=== PATIENT | female | born 2000 | race Caucasian/White ===

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

== ENCOUNTER 2018-12-29 10:15 | Outpatient (CLI) | payer OTHER ==
[2016-02-18 20:35] VITALS: BP 130/90
--- NOTE | 2018-12-29 11:05 | Diagnostic Imaging Report ---
SHELDON RAM [facility] [address] [facility] [address] [place] [address]. [id number] Report Submission Date: Dec 29, 2018 11:01:35 AM CDT Patient Study Name: MARIANO MARINA Date: Dec 29, 2018 10:30:07 AM CDT Modality Type: DX Gender: F Description: FOOT 3 VIEWS OR MORE : 89 Institution: [facility] Physician: SHELDON RAM EXAMINATION: FOOT 3 VIEWS OR MORE HISTORY: LEFT FOOT PAIN X 2 MONTHS. PATIENT DENIES CHANCE OF AND WAS SHIELDED FOR EXAM. WEIGHT BEARING PER DR RAM REQUEST. (Hx) COMPARISON: None FINDINGS: There is pes planus. No acute fracture or dislocation is identified. The joint spaces are preserved. Bone density is normal. No soft tissue swelling is seen. IMPRESSION: Pes planus without acute fracture or dislocation identified. Electronically signed on Dec 29, 2018 11:01:35 AM CDT by: Poncho PERRY
--- NOTE | 2018-12-29 11:05 | Diagnostic Imaging Report ---
SHELDON RAM [facility] [address] [facility] [address] [place] [address]. [id number] Report Submission Date: Dec 29, 2018 11:01:40 AM CDT Patient Study Name: MARIANO MARINA Date: Dec 29, 2018 10:30:07 AM CDT Modality Type: DX Gender: F Description: TOES 2 VIEWS OR MORE : [birth year] Institution: [facility] Physician: SHELDON RAM EXAMINATION: TOES 2 VIEWS OR MORE HISTORY: LEFT GREAT TOE PAIN X 2 MONTHS. PATIENT DENIES CHANCE OF AND WAS SHIELDED FOR EXAM. SPECIALTY VIEW PER DR RAM REQUEST. (Hx) COMPARISON: None FINDINGS: The osseous structures are intact and well aligned without acute fracture or dislocation. The joint spaces are preserved. Bone density is normal. No soft tissue swelling is seen. IMPRESSION: No acute fracture or dislocation identified. Electronically signed on Dec 29, 2018 11:01:40 AM CDT by: Poncho PERRY
== END 2018-12-29 10:30 ==
LOC: RAD 10:15
PROVIDERS: ATTEND Podiatrist Foot & Ankle Surgery
DX: M21.42 Flat foot [pes planus] (acquired), left foot (principal); M20.5X2 Other deformities of toe(s) (acquired), left foot; M79.672 Pain in left foot
CPT/HCPCS: 73630; 73660

== ENCOUNTER 2019-06-16 11:09 | Outpatient (CLI) | payer OTHER ==
[2016-02-18 20:35] VITALS: BP 130/90
--- NOTE | 2019-06-16 15:41 | Diagnostic Imaging Report ---
AUBRIE JO (JUMA) - OP [facility] [address] [facility] [address] [place], [place]. [address] Report Submission Date: Jun 16, 2019 11:38:33 AM CDT Patient Study Name: MARIANO MARINA Date: Jun 16, 2019 11:14:19 AM CDT Modality Type: CT\SR Gender: F Description: CT ABD & PELVIS W/O CONTRAST RENAL STONE : 89 Institution: [facility] Physician: AUBRIE JO) - OP CT abdomen and pelvis without contrast Date of study: CLINICAL HISTORY: RUQ PAIN AND HEMATURIA X 2 DAYS (Hx) / ITS.REASON RUQ WITH HEMATURIA Note time : 06/16/2019 11:25:03 AM User : Sharmila Rosado RUQ PAIN AND HEMATURIA X 2 DAYS (DICOM Hx) (DICOM Hx) TECHNIQUE: 5 mm contiguous axial images of the abdomen and pelvis non contrast. FINDINGS: The lung bases are clear. Abdomen: The liver, pancreas and spleen are normal in appearance. The gallbladder is unremarkable. The kidneys are normal in size and surface contour. There is no evidence of renal or ureteral calculi. No hydronephrosis or perinephric stranding is evident. The aorta is normal in caliber. The small bowel is nondistended. There is no evidence of free air or free fluid. Shunt catheter tubing ends in the upper abdomen, unremarkable. Pelvis: The colon is normal in appearance. The distal ureters and bladder are normal in appearance. There is no evidence of ureteral or intravesicular calculi. . There is no evidence of free air or free fluid. The sigmoid colon and rectum are normal. The remaining pelvic structures are within normal limits and the bones of the pelvis are intact. IMPRESSION: Unremarkable Electronically signed on Jun 16, 2019 11:38:33 AM CDT by: Werner PERRY
== END 2019-06-16 11:12 ==
LOC: RAD 11:09
PROVIDERS: ATTEND Nurse Practitioner Family
DX: R10.11 Right upper quadrant pain (principal); R31.9 Hematuria, unspecified
CPT/HCPCS: 74150; 74176

== ENCOUNTER 2019-06-24 08:00 | Outpatient (CLI) | payer OTHER ==
[2016-02-18 20:35] VITALS: BP 130/90
--- NOTE | 2019-07-07 13:06 | Diagnostic Imaging Report ---
AUBRIE JO (JUMA) - OP [facility] [address] [facility] [address] [place], [place]. [address] Report Submission Date: Jun 16, 2019 11:38:33 AM CDT Patient Study Name: MARIANO MARINA Date: Jun 16, 2019 11:14:19 AM CDT Modality Type: CT\SR Gender: F Description: CT ABD & PELVIS W/O CONTRAST RENAL STONE : 89 Institution: [facility] Physician: AUBRIE JO) - OP CT abdomen and pelvis without contrast Date of study: CLINICAL HISTORY: RUQ PAIN AND HEMATURIA X 2 DAYS (Hx) / ITS.REASON RUQ WITH HEMATURIA Note time : 06/16/2019 11:25:03 AM User : Sharmila Rosado RUQ PAIN AND HEMATURIA X 2 DAYS (DICOM Hx) (DICOM Hx) TECHNIQUE: 5 mm contiguous axial images of the abdomen and pelvis non contrast. FINDINGS: The lung bases are clear. Abdomen: The liver, pancreas and spleen are normal in appearance. The gallbladder is unremarkable. The kidneys are normal in size and surface contour. There is no evidence of renal or ureteral calculi. No hydronephrosis or perinephric stranding is evident. The aorta is normal in caliber. The small bowel is nondistended. There is no evidence of free air or free fluid. Shunt catheter tubing ends in the upper abdomen, unremarkable. Pelvis: The colon is normal in appearance. The distal ureters and bladder are normal in appearance. There is no evidence of ureteral or intravesicular calculi. . There is no evidence of free air or free fluid. The sigmoid colon and rectum are normal. The remaining pelvic structures are within normal limits and the bones of the pelvis are intact. IMPRESSION: Unremarkable Electronically signed on Jun 16, 2019 11:38:33 AM CDT by: Werner PERRY
== END 2019-06-24 08:15 ==
LOC: RAD 08:00
PROVIDERS: ATTEND Nurse Practitioner Family
DX: R10.11 Right upper quadrant pain (principal); R11.2 Nausea with vomiting, unspecified
CPT/HCPCS: 76705

== ENCOUNTER 2019-06-26 08:00 | Outpatient (CLI) | payer OTHER ==
[2016-02-18 20:35] VITALS: BP 130/90
--- NOTE | 2019-07-15 11:18 | Diagnostic Imaging Report ---
AUBRIE JO (NET PROGRAMMER ANALYST) - OP [facility] [address] [facility] [address] Report Submission Date: Jun 26, 2019 8:59:48 AM CDT Patient Study Name: MARIANO MARINA Date: Jun 26, 2019 8:33:00 AM CDT Modality Type: CT\SR Gender: F Description: CT A/P W/ CONTRAST : 89 Institution: [facility] Physician: AUBRIE JO (JUMA) - OP Exam: CT abdomen and pelvis with contrast. History: Abdominal pain. Nausea for 3 weeks. Axial images through the abdomen and pelvis after IV infusion of 90 cc Omnipaque 300 is submitted along with sagittal and coronal reformatted images. The examination is compared to study dated June 16, 2019. The visualized lower lung ray are clear. A ventriculoperitoneal shunt courses anteriorly into the upper abdomen. This is not changed in the interval. No free intraperitoneal air is identified. The gallbladder is distended without stones. The liver, spleen and pancreas are normal attenuation and enhancement. The adrenal glands are normal configuration. The abdominal aorta is of normal caliber. No periaortic lymphadenopathy is identified. Both kidneys are normal attenuation and enhancement. No hydronephrosis is identified. The urinary bladder is distended. The visualized uterus appears normal in configuration and attenuation. No free cul-de-sac fluid is identified. The appendix appears normal in configuration. The small bowel is of normal caliber. Air and stool seen throughout the large intestine. No inflammatory changes in the mesentery or ascites is identified. No bony abnormalities are identified. Impression: The solid organs of the abdomen are of normal attenuation and configuration. No hydronephrosis is seen. The appendix is of normal configuration. Nonspecific bowel gas pattern. No inflammatory changes in the mesentery or ascites is identified. Electronically signed on Jun 26, 2019 8:59:48 AM CDT by: Carlos PERRY
== END 2019-06-26 09:00 ==
LOC: RAD 08:00
PROVIDERS: ATTEND Nurse Practitioner Family
DX: R10.9 Unspecified abdominal pain (principal); R14.0 Abdominal distension (gaseous); R11.0 Nausea
CPT/HCPCS: 74177; Q9967

== ENCOUNTER 2019-07-01 11:16 | Outpatient (CLI) | payer OTHER ==
[2016-02-18 20:35] VITALS: BP 130/90
== END 2019-07-01 11:21 | disposition home or self-care (01) ==
LOC: LAB 11:16
PROVIDERS: ATTEND Internal Medicine Gastroenterology
DX: R10.9 Unspecified abdominal pain (principal)
CPT/HCPCS: 86677